=== PATIENT | male | born 1950 | race Caucasian/White ===

== ENCOUNTER 2020-04-08 07:44 | Inpatient (IN) ==
[2020-04-08] MEDS ORDERED: Isovue-370 500 ML BOTTLE IVP ONE (08:02)
[2020-04-08] MEDS ORDERED: 0.9 % Sodium Chloride 1,000 ML IVC ONE (08:02)
[2020-04-08 08:20] LABS: Basophils % 0.1 %; Hematocrit 38.2 % (37.5-50.1); Hemoglobin 12.7 g/dL (12.9-16.9); Immature Granulocytes % 0.4 % (0-4); Lymphocytes # 0.5 K/mcL (0.6-4.6); Lymphocytes % 4.2 %; Mean Corpuscular HGB Conc 33.2 g/dL (31.6-35.5); Mean Corpuscular Hemoglobin 29.9 pg (28.0-33.3); Mean Corpuscular Volume 89.9 fL (83.0-100.0); Mean Platelet Volume 9.7 fL (9.4-12.4); Monocytes # 0.6 K/mcL (0.0-1.3); Monocytes % 5.5 %; Neutrophils # 10.4 K/mcL (1.6-8.9); Platelet Count 125 K/mcL (140-400); Red Blood Count 4.25 M/mcL (4.19-5.50); Red Cell Distribution Width 13.2 % (11.5-14.5); Segmented Neutrophils % 89.8 %; White Blood Count 11.5 K/mcL (4.3-11.1)
[2020-04-08 08:42] LABS: Alanine Aminotransferase 19 Units/L (7-52); Albumin 4.7 g/dL (3.5-5.7); Albumin/Globulin Ratio 1.5 (1.1-2.2); Alkaline Phosphatase 85 Units/L (34-104); Aspartate Amino Transferase 16 Units/L (13-39); BUN/Creatinine Ratio 20 (6-26); Bilirubin,Direct 0.2 mg/dL (0.0-0.2); Bilirubin,Indirect 1.3 mg/dL (0.0-1.0); Bilirubin,Total 1.5 mg/dL (0.3-1.0); Blood Urea Nitrogen 19 mg/dL (8-23); Calcium 9.7 mg/dL (8.6-10.3); Carbon Dioxide 27 mEq/L (23-29); Chloride 102 mEq/L (98-107); Globulin 3.1 g/dL (2.4-3.5); Glucose 176 mg/dL (70-105); Lipase 4 Units/L (11-82); Osmolality,Calculated 291 (280-300); Sodium 137 mEq/L (136-145); Total Protein 7.8 g/dL (6.4-8.9); Troponin I < 0.03 ng/mL (< 0.04); eGFR For African Americans > 60 (> 60); eGFR For Non-African Americans > 60 (> 60)
[2020-04-08 09:50] LABS: Bilirubin,Urine Negative (Negative); Blood,Urine Small (Negative); Clarity,Urine Clear (Clear); Color,Urine Yellow (Yellow); Glucose,Urine (UA) Normal (Normal); Ketones,Urine 40 mg/dL (Negative); Leukocyte Esterase,Urine Negative (Negative); Nitrite,Urine Negative (Negative); PH,Urine 6.5 pH Units (5.0-8.0); Protein,Urine 30 mg/dL (Neg-Trace); Specific Gravity,Urine > 1.030 (1.010-1.025); Urobilinogen,Urine Normal (Normal)
[2020-04-08 09:53] LABS: Bacteria,Urine None Seen per hpf (None-Few); Hyaline Casts,Urine None Seen per lpf (None-Few); Squamous Epithelial Cell,Urine Few per lpf (None-Few); WBC,Urine 0-3 per hpf (0-3)
[2020-04-08] MEDS ORDERED: Piperacillin/Tazobactam 3.375 GM in 0.9 % Sodium Chloride Mini Bag 100 ML IVPB ONE (11:04)
[2020-04-08] MEDS ORDERED: Ondansetron 4 MG/2 ML VIAL IVP PRN (12:53)
[2020-04-08] MEDS ORDERED: 0.9 % Sodium Chloride 1,000 ML IVC SCH (12:53)
[2020-04-08] MEDS ORDERED: CefOXitin 1,000 MG VIAL ONE (17:00)
[2020-04-08] MEDS ORDERED: *HR* OxyCODONE/APAP 5/325 TABLET PO PRN (18:43)
[2020-04-08] MEDS ORDERED: Acetaminophen IV 1,000 MG/100 ML INFUS..BTL ONE (20:32)
[2020-04-08] MEDS ORDERED: Famotidine 20 MG/2 ML VIAL ONE (20:32)
[2020-04-08] MEDS ORDERED: Lidocaine -MPF 2% 2 ML VIAL ONE (20:35)
[2020-04-08] MEDS ORDERED: Ondansetron 4 MG/2 ML VIAL ONE (20:35)
[2020-04-08] MEDS ORDERED: *HR* FentaNYL (PF) 100 MCG/2 ML VIAL ONE (20:35)
[2020-04-08] MEDS ORDERED: *HR* Succinylcholine 200 MG/10 ML VIAL IVP ONE (20:35)
[2020-04-08] MEDS ORDERED: *HR* Propofol 200 MG/20 ML VIAL IVP ONE ×2 (20:35→22:40)
[2020-04-08] MEDS ORDERED: Famotidine 20 MG/2 ML VIAL IVP ONE (20:50)
[2020-04-08] MEDS ORDERED: Acetaminophen IV 1,000 MG/100 ML INFUS..BTL IVPB ONE (20:50)
[2020-04-08] MEDS ORDERED: *HR* PHENYLEPHRINE 1,000 MCG/10 ML SYRINGE IVP ONE (21:34)
[2020-04-08] MEDS ORDERED: *HR* Promethazine 25 MG/ML VIAL IVP PRN (22:37)
[2020-04-08] MEDS ORDERED: *HR* Labetalol 20 MG/4 ML SYRINGE IVP PRN (22:37)
[2020-04-08] MEDS ORDERED: Ondansetron 4 MG/2 ML VIAL IVP ONE (22:37)
[2020-04-08] MEDS: *HR* HYDROmorphone PF 0.5 MG/0.5 ML SYRINGE IVP PRN ×4 (23:20→23:52)
[2020-04-09] MEDS ORDERED: 0.9 % Sodium Chloride 1,000 ML IVC SCH (00:27)
[2020-04-09] MEDS ORDERED: Piperacillin/Tazobactam 3.375 GM in 0.9 % Sodium Chloride Mini Bag 100 ML IVPB SCH (00:27)
[2020-04-09] MEDS: Piperacillin/Tazobactam 3.375 GM in 0.9 % Sodium Chloride Mini Bag 100 ML IVPB SCH ×4 (00:47→23:52)
[2020-04-09] MEDS: *HR* OxyCODONE/APAP 5/325 TABLET PO PRN ×3 (03:49→19:35)
[2020-04-09] MEDS: 0.9 % Sodium Chloride 1,000 ML IVC SCH (06:44)
[2020-04-10] MEDS: Piperacillin/Tazobactam 3.375 GM in 0.9 % Sodium Chloride Mini Bag 100 ML IVPB SCH ×2 (08:03→15:28)
[2020-04-10] MEDS: *HR* OxyCODONE/APAP 5/325 TABLET PO PRN (08:27)
[2020-04-10 08:59] LABS: Hematocrit 46.4 % (37.5-50.1); Mean Corpuscular HGB Conc 32.5 g/dL (31.6-35.5); Mean Corpuscular Hemoglobin 29.8 pg (28.0-33.3); Mean Corpuscular Volume 91.7 fL (83.0-100.0); Mean Platelet Volume 9.9 fL (9.4-12.4); Platelet Count 149 K/mcL (140-400); Red Blood Count 5.06 M/mcL (4.19-5.50); Red Cell Distribution Width 13.8 % (11.5-14.5); White Blood Count 12.3 K/mcL (4.3-11.1)
[2020-04-10 09:00] LABS: Hemoglobin 15.1 g/dL (12.9-16.9)
[2020-04-10 09:07] LABS: Albumin 3.8 g/dL (3.5-5.7); Albumin/Globulin Ratio 1.3 (1.1-2.2); Bilirubin,Direct 0.5 mg/dL (0.0-0.2); Bilirubin,Indirect 1.4 mg/dL (0.0-1.0); Bilirubin,Total 1.9 mg/dL (0.3-1.0); Globulin 2.9 g/dL (2.4-3.5); Total Protein 6.7 g/dL (6.4-8.9)
[2020-04-10] MEDS: Ondansetron 4 MG/2 ML VIAL IVP PRN (11:05)
[2020-04-10] MEDS: Acetaminophen IV 1,000 MG/100 ML INFUS..BTL IVPB SCH ×3 (13:31→23:42)
[2020-04-10] MEDS: 0.9 % Sodium Chloride 1,000 ML IVC SCH (23:38)
[2020-04-11] MEDS: Piperacillin/Tazobactam 3.375 GM in 0.9 % Sodium Chloride Mini Bag 100 ML IVPB SCH ×3 (00:19→18:16)
[2020-04-11] MEDS: *HR* OxyCODONE/APAP 5/325 TABLET PO PRN (00:20)
[2020-04-11] MEDS: Acetaminophen IV 1,000 MG/100 ML INFUS..BTL IVPB SCH ×3 (05:07→18:24)
[2020-04-11 05:47] LABS: Hematocrit 40.8 % (37.5-50.1); Hemoglobin 13.6 g/dL (12.9-16.9); Mean Corpuscular HGB Conc 33.3 g/dL (31.6-35.5); Mean Corpuscular Volume 89.9 fL (83.0-100.0); Mean Platelet Volume 9.7 fL (9.4-12.4); Platelet Count 156 K/mcL (140-400); Red Blood Count 4.54 M/mcL (4.19-5.50); Red Cell Distribution Width 13.5 % (11.5-14.5); White Blood Count 10.1 K/mcL (4.3-11.1)
[2020-04-11 05:59] LABS: Alanine Aminotransferase 23 Units/L (7-52); Albumin 3.2 g/dL (3.5-5.7); Albumin/Globulin Ratio 1.3 (1.1-2.2); Alkaline Phosphatase 52 Units/L (34-104); Aspartate Amino Transferase 15 Units/L (13-39); BUN/Creatinine Ratio 32 (6-26); Bilirubin,Total 1.2 mg/dL (0.3-1.0); Blood Urea Nitrogen 26 mg/dL (8-23); Calcium 7.9 mg/dL (8.6-10.3); Carbon Dioxide 26 mEq/L (23-29); Chloride 103 mEq/L (98-107); Globulin 2.5 g/dL (2.4-3.5); Glucose 124 mg/dL (70-105); Osmolality,Calculated 284 (280-300); Potassium 4.2 mEq/L (3.5-5.1); Sodium 134 mEq/L (136-145); Total Protein 5.7 g/dL (6.4-8.9); eGFR For African Americans > 60 (> 60); eGFR For Non-African Americans > 60 (> 60)
[2020-04-11] MEDS ORDERED: Lidocaine Jelly 11 ml Syringe TP STA (12:04)
[2020-04-11] MEDS ORDERED: Ondansetron 4 MG/2 ML VIAL IVP STA (12:49)
[2020-04-11] MEDS ORDERED: *HR* FentaNYL (PF) 100 MCG/2 ML VIAL IVP ONE (12:49)
[2020-04-11] MEDS ORDERED: Chloraseptic Spray 177 ML BOTTLE MM PRN (12:49)
[2020-04-11] MEDS: Ondansetron 4 MG/2 ML VIAL IVP PRN (12:50)
[2020-04-11] MEDS ORDERED: *HR* Promethazine 25 MG/ML VIAL IVP STA (12:50)
[2020-04-11] MEDS ORDERED: Saliva Stimulant 100ml BOTTLE PO PRN (13:01)
[2020-04-11] MEDS: Pantoprazole 40 MG VIAL IVP SCH (13:58)
[2020-04-11] MEDS: Ketorolac 15 MG/ML VIAL IVP SCH ×2 (18:10→20:40)
[2020-04-11] MEDS: 0.9 % Sodium Chloride 1,000 ML IVC SCH (18:23)
[2020-04-11] MEDS: *HR* Heparin 5,000 UNIT/ML VIAL SQ SCH (18:23)
[2020-04-11] MEDS: Metoclopramide 10 MG/2 ML VIAL IVP SCH (18:24)
[2020-04-11] MEDS ORDERED: *HR* LORazepam 2 MG/ML VIAL IVP PRN (19:35)
[2020-04-12] MEDS: Metoclopramide 10 MG/2 ML VIAL IVP SCH ×3 (00:03→16:19)
[2020-04-12] MEDS: Piperacillin/Tazobactam 3.375 GM in 0.9 % Sodium Chloride Mini Bag 100 ML IVPB SCH ×3 (00:04→16:19)
[2020-04-12] MEDS: Acetaminophen IV 1,000 MG/100 ML INFUS..BTL IVPB SCH ×2 (00:09→05:13)
[2020-04-12] MEDS: Ketorolac 15 MG/ML VIAL IVP SCH ×4 (04:55→21:05)
[2020-04-12] MEDS: *HR* Heparin 5,000 UNIT/ML VIAL SQ SCH ×2 (04:56→16:20)
[2020-04-12] MEDS: Pantoprazole 40 MG VIAL IVP SCH (08:36)
[2020-04-13] MEDS: Piperacillin/Tazobactam 3.375 GM in 0.9 % Sodium Chloride Mini Bag 100 ML IVPB SCH ×3 (00:36→15:31)
[2020-04-13] MEDS: Ketorolac 15 MG/ML VIAL IVP SCH ×4 (06:00→22:01)
[2020-04-13] MEDS: *HR* Heparin 5,000 UNIT/ML VIAL SQ SCH ×2 (06:06→18:28)
[2020-04-13 07:09] LABS: BUN/Creatinine Ratio 34 (6-26); Blood Urea Nitrogen 30 mg/dL (8-23); Calcium 8.4 mg/dL (8.6-10.3); Carbon Dioxide 25 mEq/L (23-29); Chloride 105 mEq/L (98-107); Glucose 89 mg/dL (70-105); Osmolality,Calculated 296 (280-300); Potassium 3.9 mEq/L (3.5-5.1); Sodium 140 mEq/L (136-145); eGFR For African Americans > 60 (> 60); eGFR For Non-African Americans > 60 (> 60)
[2020-04-13] MEDS: Pantoprazole 40 MG VIAL IVP SCH (07:56)
[2020-04-13] MEDS ORDERED: *HR* LORazepam 2 MG/ML VIAL IVP PRN (15:18)
[2020-04-13] MEDS: 0.9 % Sodium Chloride 1,000 ML IVC SCH (22:02)
[2020-04-14] MEDS: Piperacillin/Tazobactam 3.375 GM in 0.9 % Sodium Chloride Mini Bag 100 ML IVPB SCH ×4 (00:06→23:16)
[2020-04-14] MEDS: Ketorolac 15 MG/ML VIAL IVP SCH ×4 (03:20→21:05)
[2020-04-14] MEDS: *HR* Heparin 5,000 UNIT/ML VIAL SQ SCH ×2 (04:58→17:21)
[2020-04-14] MEDS: Pantoprazole 40 MG VIAL IVP SCH (08:54)
[2020-04-15] MEDS: Ketorolac 15 MG/ML VIAL IVP SCH ×2 (03:55→09:04)
[2020-04-15] MEDS: *HR* Heparin 5,000 UNIT/ML VIAL SQ SCH (06:31)
[2020-04-15] MEDS: Piperacillin/Tazobactam 3.375 GM in 0.9 % Sodium Chloride Mini Bag 100 ML IVPB SCH (09:03)
[2020-04-15] MEDS: Pantoprazole 40 MG VIAL IVP SCH (09:04)
[2020-04-15 10:55] VITALS: BP 148/76
== END 2020-04-15 11:35 | disposition home or self-care (01) | DRG 418 ==
LOC: 3NENU 07:44 → EMEROOARM 07:44 → 3NENU 12:10
PROVIDERS: ADMIT Surgery; ATTEND Surgery

== ENCOUNTER 2021-06-19 16:08 | Observation (INO) ==
[2021-06-19] MEDS ORDERED: 0.9 % Sodium Chloride 1,000 ML IVC ONE ×2 (16:29→19:29)
[2021-06-19 16:51] LABS: Basophils % 0.1 %; Hematocrit 44.3 % (37.5-50.1); Hemoglobin 14.5 g/dL (12.9-16.9); Immature Granulocytes % 1.5 % (0-4); Immature Platelets 3.6 % (1.1-6.1); Lymphocytes # 0.2 K/mcL (0.6-4.6); Lymphocytes % 2.1 %; Mean Corpuscular HGB Conc 32.7 g/dL (31.6-35.5); Mean Corpuscular Hemoglobin 29.4 pg (28.0-33.3); Mean Corpuscular Volume 89.9 fL (83.0-100.0); Mean Platelet Volume 10.4 fL (9.4-12.4); Monocytes # 0.4 K/mcL (0.0-1.3); Neutrophils # 8.9 K/mcL (1.6-8.9); Red Blood Count 4.93 M/mcL (4.19-5.50); Red Cell Distribution Width 14.1 % (11.5-14.5); Segmented Neutrophils % 92.3 %; White Blood Count 9.6 K/mcL (4.3-11.1)
[2021-06-19] MEDS ORDERED: Piperacillin/Tazobactam 3.375 GM in 0.9 % Sodium Chloride Mini Bag 100 ML IVPB ONE (17:03)
[2021-06-19 17:08] LABS: Platelet Count 81 K/mcL (140-400)
[2021-06-19] MEDS ORDERED: Piperacillin/Tazobactam 3.375 GM in Water for inj. (sterile) 20 ML IVP ONE (17:13)
[2021-06-19 17:14] LABS: BUN/Creatinine Ratio 21 (6-26); Blood Urea Nitrogen 30 mg/dL (8-23); Carbon Dioxide 22 mEq/L (23-29); Chloride 100 mEq/L (98-107); Glucose 125 mg/dL (70-105); Osmolality,Calculated 282 (280-300); Potassium 3.3 mEq/L (3.5-5.1); Sodium 132 mEq/L (136-145); eGFR For African Americans > 60 (> 60); eGFR For Non-African Americans 50 (> 60)
[2021-06-19] MEDS ORDERED: Vancomycin 1,500 MG/265 ML IV.SOLN IVPB ONE (18:00)
[2021-06-19] MEDS ORDERED: Isovue-370 500 ML BOTTLE IVP ONE (18:49)
[2021-06-19 21:47] LABS: Bacteria,Urine Few per hpf (None-Few); Bilirubin,Urine Negative (Negative); Blood,Urine Small (Negative); Clarity,Urine Turbid (Clear); Color,Urine Dark-Yellow (Yellow); Glucose,Urine (UA) Normal (Normal); Granular Casts,Urine Few per lpf (None Seen); Ketones,Urine Trace mg/dL (Negative); Leukocyte Esterase,Urine Large (Negative); Mucus,Urine Few per lpf (None-Few); Nitrite,Urine Negative (Negative); Protein,Urine 30 mg/dL (Neg-Trace); Renal Epithelial Cells,Urine Few per hpf (None-Few); Specific Gravity,Urine > 1.030 (1.010-1.025); Squamous Epithelial Cell,Urine Few per hpf (None-Few); Transitional Epi Cells,Urine Few per hpf (None-Few); Urobilinogen,Urine Normal (Normal); WBC,Urine TNTC per hpf (0-3)
[2021-06-19] MEDS ORDERED: 0.9 % Sodium Chloride 500 ML IV ONE (22:03)
[2021-06-20] MEDS ORDERED: Melatonin 3 MG TABLET PO PRN (00:40)
[2021-06-20] MEDS ORDERED: Ondansetron 4 MG/2 ML VIAL IVP PRN (00:40)
[2021-06-20] MEDS ORDERED: Naloxone 0.4 MG/ML INJ IVP PRN (00:40)
[2021-06-20 01:16] LABS: Basophils % 0.1 %
[2021-06-20 01:17] LABS: Eosinophils % 0.2 %; Hematocrit 41.1 % (37.5-50.1); Hemoglobin 13.7 g/dL (12.9-16.9); Lymphocytes # 0.6 K/mcL (0.6-4.6); Lymphocytes % 5.2 %; Mean Corpuscular HGB Conc 33.3 g/dL (31.6-35.5); Mean Corpuscular Hemoglobin 29.9 pg (28.0-33.3); Mean Corpuscular Volume 89.7 fL (83.0-100.0); Mean Platelet Volume 10.5 fL (9.4-12.4); Monocytes # 0.7 K/mcL (0.0-1.3); Monocytes % 6.2 %; Neutrophils # 9.7 K/mcL (1.6-8.9); Red Blood Count 4.58 M/mcL (4.19-5.50); Red Cell Distribution Width 14.4 % (11.5-14.5); Segmented Neutrophils % 87.3 %; White Blood Count 11.1 K/mcL (4.3-11.1)
[2021-06-20 01:20] LABS: Platelet Count 75 K/mcL (140-400)
[2021-06-20 01:35] LABS: Alanine Aminotransferase 12 Units/L (7-52); Albumin 3.2 g/dL (3.5-5.7); Albumin/Globulin Ratio 1.3 (1.1-2.2); Alkaline Phosphatase 73 Units/L (34-104); Aspartate Amino Transferase 14 Units/L (13-39); BUN/Creatinine Ratio 22 (6-26); Bilirubin,Total 2.1 mg/dL (0.3-1.0); Blood Urea Nitrogen 27 mg/dL (8-23); Calcium 7.6 mg/dL (8.6-10.3); Carbon Dioxide 23 mEq/L (23-29); Chloride 105 mEq/L (98-107); Globulin 2.4 g/dL (2.4-3.5); Glucose 177 mg/dL (70-105); Magnesium 1.8 mg/dL (1.6-2.6); Osmolality,Calculated 287 (280-300); Phosphorous 1.8 mg/dL (2.7-4.5); Potassium 3.7 mEq/L (3.5-5.1); Sodium 134 mEq/L (136-145); Total Protein 5.6 g/dL (6.4-8.9); eGFR For African Americans > 60 (> 60); eGFR For Non-African Americans 58 (> 60)
[2021-06-20] MEDS: Acetaminophen 325 MG TABLET PO PRN ×2 (05:08→18:30)
[2021-06-20] MEDS: Piperacillin/Tazobactam 3.375 GM in 0.9 % Sodium Chloride Mini Bag 100 ML IVPB SCH ×3 (08:02→23:38)
[2021-06-20] MEDS: Loratadine 10 MG TABLET PO SCH (10:48)
[2021-06-20] MEDS ORDERED: Perflutren Lipid Microsphere 1.3 ML in 0.9 % Sodium Chloride 8.7 ML IVP PRN (15:36)
[2021-06-20 20:02] LABS: Acinetobacter baumannii by PCR Not Detected (Not Detect); Enterococcus by PCR Not Detected (Not Detect); Staphylococcus aureus by PCR Not Detected (Not Detect); Staphylococcus by PCR Not Detected (Not Detect); Streptococcus agalactiae(B)PCR Not Detected (Not Detect); Streptococcus by PCR Not Detected (Not Detect); Streptococcus pneumoniae PCR Not Detected (Not Detect); Streptococcus pyogenes (A) PCR Not Detected (Not Detect)
[2021-06-20 20:03] LABS: Candida albicans by PCR Not Detected (Not Detect); Candida glabrata by PCR Not Detected (Not Detect); Candida krusei by PCR Not Detected (Not Detect); Candida parapsilosis by PCR Not Detected (Not Detect); Candida tropicalis by PCR Not Detected (Not Detect); Enterobacter cloacae Cmplx PCR Not Detected (Not Detect); Enterobacteriaceae by PCR DETECTED (Not Detect); Escherichia coli by PCR DETECTED (Not Detect); Klebsiella oxytoca by PCR Not Detected (Not Detect); Klebsiella pneumoniae by PCR Not Detected (Not Detect); Proteus by PCR Not Detected (Not Detect); Pseudomonas aeruginosa by PCR Not Detected (Not Detect); Serratia marcescens by PCR Not Detected (Not Detect)
[2021-06-21 04:47] LABS: Alanine Aminotransferase 14 Units/L (7-52); Albumin 2.9 g/dL (3.5-5.7); Albumin/Globulin Ratio 1.3 (1.1-2.2); Alkaline Phosphatase 77 Units/L (34-104); Aspartate Amino Transferase 16 Units/L (13-39); BUN/Creatinine Ratio 23 (6-26); Bilirubin,Total 1.7 mg/dL (0.3-1.0); Blood Urea Nitrogen 23 mg/dL (8-23); Calcium 7.8 mg/dL (8.6-10.3); Carbon Dioxide 25 mEq/L (23-29); Chloride 107 mEq/L (98-107); Globulin 2.3 g/dL (2.4-3.5); Glucose 97 mg/dL (70-105); Osmolality,Calculated 290 (280-300); Potassium 3.7 mEq/L (3.5-5.1); Sodium 138 mEq/L (136-145); Total Protein 5.2 g/dL (6.4-8.9); eGFR For African Americans > 60 (> 60); eGFR For Non-African Americans > 60 (> 60)
[2021-06-21 08:35] LABS: Adenovirus F 40/41 PCR Not detected (Not detect); Astrovirus PCR Not detected (Not detect); C.difficile Toxin A/B Gene PCR Not detected (Not detect); Campylobacter by PCR Not detected (Not detect); Cryptosporidium by PCR Not detected (Not detect); Cyclospora cayetanensis PCR Not detected (Not detect); E. coli O157 by PCR Not detected (Not detect); Entamoeba histolytica PCR Not detected (Not detect); Enteroaggregative E.coli(EAEC) Not detected (Not detect); Enteropathogenic E.coli(EPEC) DETECTED (Not detect); Enterotoxigenic E.coli (ETEC) Not detected (Not detect); Giardia lamblia PCR Not detected (Not detect); Norovirus GI/GII PCR Not detected (Not detect); Plesiomonas shigelloides PCR Not detected (Not detect); Rotavirus A PCR Not detected (Not detect); Salmonella PCR Not detected (Not detect); Sapovirus PCR Not detected (Not detect); Shig/EnteroinvasiveE coli EIEC Not detected (Not detect); Shigalike tox-prod E coli STEC Not detected (Not detect); Vibrio PCR Not detected (Not detect); Vibrio cholerae PCR Not detected (Not detect); Yersinia enterocolitica PCR Not detected (Not detect)
[2021-06-21] MEDS: Loratadine 10 MG TABLET PO SCH (10:58)
[2021-06-21] MEDS: cefTRIAXone 1,000 MG in 0.9 % Sodium Chloride Mini Bag 100 ML IVPB SCH (10:58)
[2021-06-21] MEDS: Cholecalciferol (D-3) 1,000 UNIT (25MCG) TABLET PO SCH (10:58)
[2021-06-21] MEDS: Acetaminophen 325 MG TABLET PO PRN (13:36)
[2021-06-21] MEDS ORDERED: Furosemide 40 MG/4 ML VIAL IVP ONE (14:36)
[2021-06-21] MEDS: Ipratropium/Albuterol Neb 3 ML IH PRN (15:50)
[2021-06-22 06:09] LABS: Basophils % 0.3 %; Mean Corpuscular Volume 88.2 fL (83.0-100.0)
[2021-06-22 06:11] LABS: Eosinophils # 0.2 K/mcL (0.0-0.6); Eosinophils % 2.5 %; Hemoglobin 12.5 g/dL (12.9-16.9); Immature Granulocytes % 0.1 % (0-4); Immature Platelets 4.4 % (1.1-6.1); Lymphocytes # 0.9 K/mcL (0.6-4.6); Lymphocytes % 11.7 %; Mean Corpuscular HGB Conc 32.9 g/dL (31.6-35.5); Mean Platelet Volume 10.9 fL (9.4-12.4); Monocytes % 13.4 %; Red Blood Count 4.31 M/mcL (4.19-5.50); Red Cell Distribution Width 14.8 % (11.5-14.5); White Blood Count 7.3 K/mcL (4.3-11.1)
[2021-06-22 06:17] LABS: Neutrophils # 5.3 K/mcL (1.6-8.9); Platelet Count 81 K/mcL (140-400)
[2021-06-22 06:30] LABS: BUN/Creatinine Ratio 22 (6-26); Blood Urea Nitrogen 20 mg/dL (8-23); Calcium 7.7 mg/dL (8.6-10.3); Carbon Dioxide 27 mEq/L (23-29); Chloride 105 mEq/L (98-107); Glucose 97 mg/dL (70-105); Osmolality,Calculated 289 (280-300); Potassium 3.5 mEq/L (3.5-5.1); Sodium 138 mEq/L (136-145); eGFR For African Americans > 60 (> 60); eGFR For Non-African Americans > 60 (> 60)
[2021-06-22] MEDS: Loratadine 10 MG TABLET PO SCH (09:33)
[2021-06-22] MEDS: Cholecalciferol (D-3) 1,000 UNIT (25MCG) TABLET PO SCH (09:42)
[2021-06-22] MEDS: cefTRIAXone 1,000 MG in 0.9 % Sodium Chloride Mini Bag 100 ML IVPB SCH (10:37)
[2021-06-22] MEDS: Ipratropium/Albuterol Neb 3 ML IH PRN (15:15)
[2021-06-22] MEDS: Acetaminophen 325 MG TABLET PO PRN (19:40)
[2021-06-23 01:19] LABS: Basophils % 0.3 %; Immature Granulocytes % 0.8 % (0-4); Red Cell Distribution Width 14.9 % (11.5-14.5)
[2021-06-23 01:20] LABS: Eosinophils # 0.1 K/mcL (0.0-0.6); Eosinophils % 1.8 %; Hematocrit 37.9 % (37.5-50.1); Hemoglobin 12.4 g/dL (12.9-16.9); Immature Platelets 3.9 % (1.1-6.1); Lymphocytes # 0.7 K/mcL (0.6-4.6); Lymphocytes % 10.5 %; Mean Corpuscular HGB Conc 32.7 g/dL (31.6-35.5); Mean Corpuscular Hemoglobin 29.1 pg (28.0-33.3); Mean Platelet Volume 10.2 fL (9.4-12.4); Monocytes # 0.6 K/mcL (0.0-1.3); Monocytes % 9.1 %; Neutrophils # 5.1 K/mcL (1.6-8.9); Red Blood Count 4.26 M/mcL (4.19-5.50); Segmented Neutrophils % 77.5 %; White Blood Count 6.6 K/mcL (4.3-11.1)
[2021-06-23 01:40] LABS: BUN/Creatinine Ratio 20 (6-26); Blood Urea Nitrogen 18 mg/dL (8-23); Calcium 7.8 mg/dL (8.6-10.3); Carbon Dioxide 29 mEq/L (23-29); Chloride 102 mEq/L (98-107); Glucose 105 mg/dL (70-105); Magnesium 1.7 mg/dL (1.6-2.6); Osmolality,Calculated 288 (280-300); Potassium 3.4 mEq/L (3.5-5.1); Sodium 138 mEq/L (136-145); eGFR For African Americans > 60 (> 60); eGFR For Non-African Americans > 60 (> 60)
[2021-06-23 01:53] LABS: Platelet Count 76 K/mcL (140-400)
[2021-06-23] MEDS ORDERED: CefTRIAXone 1,000 MG VIAL ONE (08:02)
[2021-06-23] MEDS: cefTRIAXone 1,000 MG in 0.9 % Sodium Chloride Mini Bag 100 ML IVPB SCH (08:19)
[2021-06-23] MEDS: Cholecalciferol (D-3) 1,000 UNIT (25MCG) TABLET PO SCH (08:21)
[2021-06-23] MEDS: Loratadine 10 MG TABLET PO SCH (08:21)
[2021-06-23 11:02] VITALS: BP 139/84; PULSE 94; TEMP 98.1
[2021-06-23 11:46] VITALS: O2SAT 93
== END 2021-06-23 12:15 | disposition home or self-care (01) | DRG 872 ==
LOC: EMEROOARM 16:08 → 3BNU 16:08 → SUATTDRO 23:55 → 3BNU 06-20 00:29 → SUATTDRO 06-22 17:04
PROVIDERS: ADMIT Family Medicine; ATTEND Internal Medicine